=== PATIENT | female | born 1990 | race Caucasian/White ===

== ENCOUNTER 2020-11-15 14:19 | Emergency (ER) | payer OTHER ==
[2020-11-15 14:40] VITALS: BP 139/83; PULSE 93; TEMP 98.4; BMI 30.9
[2020-11-15] MEDS ORDERED: predniSONE 20 MG TABLET (UD) PO ONE (14:54)
[2020-11-15] MEDS ORDERED: FAMOTIDINE 20 MG TABLET PO ONE (14:54)
[2020-11-15] MEDS ORDERED: FAMOTIDINE 20 MG TABLET ONE (14:56)
[2020-11-15] MEDS ORDERED: predniSONE 20 MG TABLET (UD) ONE (14:56)
== END 2020-11-15 15:00 | disposition home or self-care (01) ==
LOC: JERFT 14:19
DX: L23.3 Allergic contact dermatitis due to drugs in contact with skin (principal)
CPT/HCPCS: 99283-25